=== PATIENT | male | born 1995 | race Two or more races ===

== ENCOUNTER 2023-10-07 23:20 | Emergency (ER) | payer OTHER ==
[2023-10-07 23:30] VITALS: BP 109/63; PULSE 76; RESP 18; BMI 23.4
== END 2023-10-08 01:23 | disposition home or self-care (01) ==
LOC: JERFT 23:20
DX: R05.9 Cough, unspecified (principal); R09.89 Other specified symptoms and signs involving the circulatory and respiratory systems; M79.10 Myalgia, unspecified site; B34.9 Viral infection, unspecified; R51.9 Headache, unspecified; Z20.822 Contact with and (suspected) exposure to COVID-19
CPT/HCPCS: 0241U-QW; 71046-TC-FY; 99284-25